=== PATIENT | male | born 1960 | race Caucasian/White ===

== ENCOUNTER 2017-08-13 09:38 | Emergency (ER) | payer OTHER ==
[~2017-08-13] VITALS: Ht 182.9 cm; Wt 65.9 kg
[2017-08-13 09:47] VITALS: BP 157/81; TEMP 98.2
[2017-08-13] MEDS ORDERED: LUNESTA2 MG PO (09:51)
[2017-08-13] MEDS ORDERED: ADVIL PM 38 MG-1 TAB PO (09:52)
[2017-08-13] MEDS ORDERED: FLEXERIL 1010 MG/TAB PO (09:53)
[2017-08-13] MEDS ORDERED: [UNRECOGNIZED DRUG - OTHER] OU (09:55)
[2017-08-13 10:50] VITALS: PULSE 81
== END 2017-08-13 10:50 | disposition home or self-care (01) ==
LOC: COL.ER 09:38
DX: J06.9 Acute upper respiratory infection, unspecified (principal); G47.00 Insomnia, unspecified; F17.210 Nicotine dependence, cigarettes, uncomplicated; Z85.820 Personal history of malignant melanoma of skin